=== PATIENT | female | born 1995 | race Caucasian/White ===

== ENCOUNTER 2021-05-24 17:43 | Emergency (ER) | payer BC ==
[~2021-05-24] VITALS: Ht 165.1 cm; Wt 72.7 kg
[~2021-05-24 17:43] MED LIST: LIDOcaine 1% 30ml preserv. free vial ONE
[2021-05-24 18:23] VITALS: BP 131/81
[2021-05-24] MEDS ORDERED: ibuprofen tablet 400 MG TABLET PO ONE (20:50)
[2021-05-24] MEDS ORDERED: TETanus/Pertussis (Acell)/Diphther VAC/PF (Tdap-Adult) 0.5ml syringe IMVAC ONE (20:50)
[2021-05-24] MEDS ORDERED: CEPH-585 PO (21:13)
== END 2021-05-24 21:30 | disposition home or self-care (01) ==
LOC: ER 17:44
DX: S61.217A Laceration without foreign body of left little finger without damage to nail, initial encounter (principal); Z79.2 Long term (current) use of antibiotics; Z20.3 Contact with and (suspected) exposure to rabies; X58.XXXA Exposure to other specified factors, initial encounter; Y93.89 Activity, other specified; Y92.89 Other specified places as the place of occurrence of the external cause; Y99.8 Other external cause status
CPT/HCPCS: 12001; 90471; 90715; 99283; J2001